=== PATIENT | female | born 1995 | race Caucasian/White ===

== ENCOUNTER 2023-12-13 11:07 | Emergency (ER) | payer BC, SELFPAY ==
[2023-12-13 11:09] VITALS: BP 154/99
--- NOTE | 2023-12-13 11:36 | ED.GENMED ---
History of Present Illness
General
Chief Complaint: Breathing Problem
Source: patient
Exam Limitations: none
Time Seen by Provider: 12/13/23 11:34
Nursing documentation reviewed up to this point in time: agreed with
Travel History
Have you had any contact with someone who has COVID-19?: No
Do you have any symptoms of coronavirus? Fever > 100 degrees, chills, cough, shortness of breath, sore throat, loss of taste or smell, muscle aches, or headache?: No
History of Present Illness
History of Present Illness:
28-year-old female with history of depression, GERD, gastric sleeve surgery 2020 presents stating 'I am having a hard time breathing.' She states she has had a dry cough for 2 months. States 5 days ago she awakened with shortness of breath and
chest tightness. [facility] which she has been taking for the past 4 days 40 then 30 mg daily.
She sees a psychologist online, last visit was 6 days ago, 4 days ago she was started on a new medication then Glycopyrrolate 1 mg for sleep sweats from side effect from sertraline. She had a total of 4 doses so far.
She states yesterday her heart was racing intermittently. She felt she had to keep moving as whenever she was still her heart rate increased and her shortness of breath got worse. She states she slept well through the night last night. She woke
today feeling fine but throughout the day gradually worsening shortness of breath and felt dizzy.
Denies N/V/D, mild constipation. Denies fever or chills. Denies abdominal pain.
Meds:
Sertraline 100 mg
Oral contraceptive
Trazadone HS (has not taken in 4 days due to starting new medication)
MVI
Probiotic
Past History
Past History
ED Past Medical History: GERD and Psychiatric (depression)
ED Past Surgical History: Other (Gastric sleeve 2020, adenoidectomy)
Social History
Tobacco: Non-smoker
Alcohol: None
Personal: Single
Living: with family (mom and sister)
Employment: Employed
Review of Systems
Review of Systems
Allergies reviewed?: Yes
All Other Systems: ROS reviewed and negative except as documented in HPI and ROS
Constitutional: Denies fever or chills
EENT: Denies sore throat
Respiratory: Reports cough and trouble breathing
Cardiac: Reports chest pain and diaphoresis (night sweats from Sertraline); Denies palpitations or syncope
ABD/GI: Reports constipated; Denies abdominal pain, nausea, vomiting, diarrhea or anorexia
: Reports no symptoms
Musculoskeletal: Reports no symptoms
Skin: Reports no symptoms
Neurological: Reports dizzy (felt dizzy earlier today); Denies headache, weakness or numbness
Psychiatric: Denies anxiety (denies any new or significant stressors)
Phy Exam
Physical Exam
Physical Exam:
GENERAL: No acute distress. A&Ox3.
CONSTITUTIONAL: Afebrile.
EYES: clear, conjunctivae normal
Neck: Supple
ENMT: moist mucus membranes, Pharynx nl, black tongue
RESPIRATORY: Regular respirations, nonlabored, but takes frequent deep breaths. lungs clear. Pulse ox 98% RA
CARDIOVASCULAR: Regular rate and rhythm, no murmurs, no rubs.
GI: Soft, nontender, normal BS
MUSCULOSKELETAL: Moves with ease. Well perfused.
SKIN: Warm, dry, pink
PSYCH: Normal mood and affect. Well kept, interactive and appropriate
NEUROLOGIC: Awake, alert and oriented. No focal neurological deficits
Course
Orders/Labs/Results
Orders:
Orders
12/13/23 11:35
Electrocardiogram (*1) Urgent
Reason for Study: Chest Pain
EKG- Treatment ONCE
Test Result ONCE
12/13/23 11:49
Complete Blood Count/With Diff Urgent
Comprehensive Metabolic Panel Urgent
D-Dimer Urgent
HCG, Serum Qualitative Screen Urgent
TSH Reflex To Free T4 Urgent
12/13/23 15:11
CR Chest - 2 Views Urgent
Comment:
Reason For Exam: sob
12/13/23 15:13
Ipratropium/Albuterol Sulfate [Duoneb] 3 ml INH R NOW STA
Abnormal Lab Results
12/13/23
11:49
WBC 14.8 H 10^3/uL
(4.8-10.8)
Abs Immat Gran (auto) 0.1 H 10^3/uL
(0-0.05)
Absolute Neuts (auto) 10.0 H 10^3/uL
(1.4-6.5)
Absolute Lymphs (auto) 3.7 H 10^3/uL
(1.2-3.4)
Absolute Monos (auto) 0.9 H 10^3/uL
(0.1-0.6)
Sodium 134 L mmol/L
(135-145)
Carbon Dioxide 21 L mmol/L
(22-30)
ALT 42 H U/L
(0-35)
12/13/23 11:49
12/13/23 11:49
Vital Signs
Initial and Last Documented VS:
Initial Vital Signs
Temp Pulse BP Pulse Ox
98.1 F 104 154/99 98
12/13/23 11:09 12/13/23 11:09 12/13/23 11:09 12/13/23 11:09
Last Documented Vital Signs
Temp Pulse Resp BP Pulse Ox
98.1 F 74 22 154/99 97
12/13/23 11:09 12/13/23 15:15 12/13/23 15:15 12/13/23 11:09 12/13/23 16:00
MDM/Problems Addressed
Differential Diagnosis Includes:
PE, anxiety, medication side effect
MDM/Problems Addressed:
28-year-old female with history of depression, GERD, gastric sleeve surgery 2020 presents stating 'I am having a hard time breathing.' She states she has had a dry cough for 2 months. States 5 days ago she awakened with shortness of breath and
chest tightness. [facility] which she has been taking for the past 4 days 40 then 30 mg daily.
She sees a psychologist online, last visit was 6 days ago, 4 days ago she was started on a new medication then Glycopyrrolate 1 mg for sleep sweats from side effect from sertraline. She had a total of 4 doses so far.
She states yesterday her heart was racing intermittently. She felt she had to keep moving as whenever she was still her heart rate increased and her shortness of breath got worse. She states she slept well through the night last night. She woke
today feeling fine but throughout the day gradually worsening shortness of breath and felt dizzy.
Denies N/V/D, mild constipation. Denies fever or chills. Denies abdominal pain.
EKG: NSR
3:10 PM
CBC with leukocytosis from patient being on steroids. No clinically significant abnormality
CMP: Normal
TSH within normal limits
Beta-hCG negative
D dimer WNL
Pt notified of results
States when she lay down the breathing got worse, lungs remain clear, will give Duoneb and check CXR
3:55 PM chest x-ray NAD
Pt stable for discharge. May be side effect from steroids. She has been on Prednisone 4 days now for cough, no cough noted during stay although she states it hasn't helped the cough. Told to DC the steroid element of ?anxiety?
Has Psych appt tomorrow. Will discuss symptoms at that time.
*Critical Care Note
Total Time (30-74mins, 75-104mins- exclusive of procedures): Not Applicable
ED Attending Note
-
Portions of this chart may have been created with voice recognition software.� Occasional wrong word or��sound alike� substitutions may have occurred due to the inherent limitations of voice recognition software.
Discharge Plan
Departure
Patient Disposition: Home (Routine Discharge)
Date of Disposition: 12/13/23
Time of Disposition: 15:57
Patient with high blood pressure during this ER visit?: No
Condition: Good
Discharge Problem:
Shortness of breath
Instructions: Shortness of Breath (Dyspnea) (DC), Oral steroid medicines
Referrals:
Your, Psychologist [Other] - Keep scheduled appt
Moustapha Kim DO [Family Provider] - As needed
Activity Restrictions/Additional Instructions:
As we discussed, I am not sure why you are feeling short of breath but there was nothing worrisome in your workup here today
You may be experiencing side effect from the steroid. Stop the Prednisone since it isn't helping the cough after 4 days anyway.
Inform your psychologist tomorrow of today's symptoms.
Interventions
Interventions:
ED- Fall Risk Assessment Last Done: 12/13/23 12:10
*ED COVID-19 Vaccine History Last Done: 12/13/23 11:12
*Nursing Disposition Last Done: 12/13/23 16:15
ED- Cardiac Assessment Last Done: 12/13/23 12:10
ED- Pulmonary Assessment Last Done: 12/13/23 12:10
Discharge Date and Time
Discharge Date/Time: 12/13/23 16:15
Print Language: SETSWANA
[2023-12-13 11:49] VITALS: BMI 51.4
[2023-12-13 12:03] LABS: % Basophils 0.4 % (0-2); % Eosinophils 0.8 % (0-6); % Immature Granulocytes 0.3 % (0-0.5); % Lymphocytes 25.1 % (20.5-51.1); % Monocytes 5.8 % (1.7-9.3); % Neutrophils 67.6 % (42.2-75.2); Absolute Basophils 0.1 10^3/uL (0-0.2); Absolute Eosinophils 0.1 10^3/uL (0-0.7); Absolute Immature Granulocytes 0.1 10^3/uL (0-0.05); Absolute Lymphocytes 3.7 10^3/uL (1.2-3.4); Absolute Monocytes 0.9 10^3/uL (0.1-0.6); Hematocrit 37.1 % (37.0-47.0); Hemoglobin 13.2 g/dL (12.0-16.0); Mean Corp Hgb Conc. 35.6 g/dL (33.0-37.0); Mean Corpuscular Volume 81.5 fL (81.0-99.0); Mean Platelet Volume 9.7 fL (7.4-10.4); Nucleated Red Blood Cells % 0 %; Platelet Count 362 10^3/uL (130-400); Red Blood Cell Count 4.55 10^6/uL (4.20-5.40); Red Cell Dist. Width 12.6 % (11.5-14.5); White Blood Cell Count 14.8 10^3/uL (4.8-10.8)
[2023-12-13 12:08] LABS: HCG, Serum Qualitative Screen Negative
[2023-12-13 12:10] LABS: D-Dimer 0.32 ug/mlFEU (0.00-0.50)
[2023-12-13 12:11] LABS: ALT (SGPT) 42 U/L (0-35); AST (SGOT) 34 U/L (14-36); Albumin 4.2 g/dl (3.5-5.0); Alkaline Phosphatase 62 U/L (38-126); Blood Urea Nitrogen 15 mg/dl (7-17); Calcium 9.9 mg/dl (8.4-10.2); Carbon Dioxide 21 mmol/L (22-30); Chloride 106 mmol/L (98-107); Estimated Creatinine Clearance > 125 ml/min; Glucose 96 mg/dl (70-99); Potassium 3.9 mmol/L (3.5-5.1); Sodium 134 mmol/L (135-145); Total Bilirubin 0.4 mg/dl (0.2-1.3); eGFR > 60.00
[2023-12-13 12:42] LABS: TSH Reflex To Free T4 1.93 uIU/ml (0.47-4.68)
[2023-12-13] MEDS: DUONEB 3 ML INH (15:32)
== END 2023-12-13 16:15 | disposition home or self-care (01) ==
LOC: EMR 11:07
PROVIDERS: Registered Nurse; EMERGENCY PHYSICIAN Emergency Medicine; FAMILY PHYSICIAN Family Medicine
DX: R06.02 Shortness of breath (principal); K21.9 Gastro-esophageal reflux disease without esophagitis; F32.A Depression, unspecified
CPT/HCPCS: 99285; 94640; 71046; 80053; 84443; 84703; 85025; 85379; 93005